=== PATIENT | male | born 1955 | race Two or more races ===

== ENCOUNTER → 2024-08-03 | Emergency (ER) | payer OTHER ==
[~2024-08-03] VITALS: Ht 160 cm; Wt 68.0 kg
[~2024-08-03] MED LIST: ETODOLAC500 M1 PO; FENOFIBRATE160 MG PO; KETOROLAC TROMETHAMINE 60 MG VIAL IM ONE; KETOROLAC TROMETHAMINE 60 MG VIAL IM STA; MULTIVITAMINA PO; ORPHENADRINE CITRATE 30 MG/ML AMPUL IM STA; ORPHENADRINE CITRATE 30 MG/ML AMPUL ONE; VITAMINA C PO
== END | disposition home or self-care (01) ==
LOC: ER 11:12
DX: M62.830 Muscle spasm of back (principal); M54.16 Radiculopathy, lumbar region

== ENCOUNTER 2025-01-07 06:00 | Day surgery (SDC) | payer OTHER ==
[2025-01-01 10:11] LABS: BASO % 0.5 % (0.1-1.2); EOS # 0.22 (0.04-0.54); EOS % 3.8 % (0.7-7.0); LYMPH # 1.71 (1.18-3.74); LYMPH % 29.4 % (19.3-53.1); MEAN PLATELET VOLUME 10.40 fl (9.4-12.4); MONO # 0.52 (0.24-0.82); MONO % 8.9 % (4.7-12.5); NEUT # 3.33 (1.56-6.13); NEUT % 57.2 % (34.0-71.1); RED CELL DISTRIBUTION WIDTH 12.8 % (11.6-14.4)
[2025-01-01 10:29] LABS: COVID-19 AG NEGATIVE (NEGATIVE)
[2025-01-01 10:41] LABS: INR 1.05
[2025-01-01 10:54] VITALS: BP 137/87
[2025-01-01 11:01] LABS: URINE APPEARANCE Clear; URINE BILIRRUBIN Negative (NEGATIVE); URINE BLOOD Negative; URINE COLOR Yellow; URINE GLUCOSE Negative (NEGATIVE); URINE KETONE Negative (NEGATIVE); URINE LEUKOCYTE Small; URINE NITRATE Negative; URINE PROTEIN Negative (NEGATIVE); URINE UROBILINOGEN 0.2 E.U./dl
[2025-01-01 11:06] LABS: URINE BACTERIA 9.5 uL (0.0-1933); URINE WBC 8.5 uL (0.0-23.2)
[2025-01-01 11:20] LABS: ALT/SGPT 67.0 U/L (12-78); AST/SGOT 40.0 U/L (15-37); BILIRUBIN TOTAL 0.8 mg/dL (0.3-1.2); BUN CREA RATIO 25.0 (7.0-25.0); CREATININE SERUM 0.61 mg/dL (0.70-1.30); GFR 131.45; GLOBULINA 2.9 G/DL (2.4-3.5); GLUCOSE FASTING 104.0 mg/dL (65-100); OSMOLALITY SERUM 290.0 MOSM/KG (275-295)
[2025-01-01 11:21] LABS: URINE CAST 0.00 uL (0.0-1.40); URINE EPITHELIAL CELLS 1.2 uL (0.0-38.8); URINE RBC 1.9 uL (0.0-20.8)
[~2025-01-07] VITALS: Ht 160 cm; Wt 68.0 kg
[~2025-01-07 06:00] MED LIST changes: +CATAFLAM; +COZAAR50 MG PO; +EZALLOR SPRINKLE5 MG PO; -KETOROLAC TROMETHAMINE 60 MG VIAL IM ONE; -KETOROLAC TROMETHAMINE 60 MG VIAL IM STA; +NEURONTIN300 MG; -ORPHENADRINE CITRATE 30 MG/ML AMPUL IM STA; -ORPHENADRINE CITRATE 30 MG/ML AMPUL ONE
[2025-01-07] MEDS ORDERED: CEFAZOLIN SODIUM 1,000 MG VIAL ONE (07:23)
[2025-01-07] MEDS ORDERED: POVIDONE-IODINE 118 ML BOTT TOP ONE ×2 (07:45→09:00)
[2025-01-07] MEDS ORDERED: POVIDONE-IODINE SCRUB 118 ML BOTT TOP ONE ×2 (07:45→09:00)
[2025-01-07] MEDS ORDERED: LIDOCAINE HCL 1%/EPINEPHRINE 10 ML VIAL IJ ONE (07:45)
[2025-01-07] MEDS ORDERED: EPINEPHRINE HCL/PF 1 MG/ML AMPUL ONE (07:45)
[2025-01-07] MEDS ORDERED: LIDOCAINE HCL 1% 20 ML VIAL IJ ONE (09:00)
[2025-01-07] MEDS ORDERED: CEFAZOLIN SODIUM 1,000 MG VIAL IV ONE (09:00)
[2025-01-07] MEDS ORDERED: BACITRACIN 28.35 GM OINT.TUBE TOP ONE (09:00)
[2025-01-07] MEDS ORDERED: SUGAMMADEX SODIUM 200 MG/2 ML VIAL IV ONE ×2 (09:30→09:50)
[2025-01-07] MEDS ORDERED: EPINEPHRINE HCL/PF 1 MG/ML AMPUL IR ONE (09:30)
[2025-01-07] MEDS ORDERED: CIPROFLOXACIN HCL 0.175 MG/DR DROPS OTIC ONE (09:45)
[2025-01-07] MEDS ORDERED: PROMETHAZINE HCL 25 MG/ML AMPUL IM PRN (10:30)
[2025-01-07] MEDS ORDERED: KETOROLAC TROMETHAMINE 60 MG VIAL IM PRN (10:30)
== END 2025-01-07 12:00 | disposition home or self-care (01) ==
LOC: CIR.AMB 06:00
PROVIDERS: ATTEND Otolaryngology Otology & Neurotology
DX: H80.82 Other otosclerosis, left ear (principal); H90.12 Conductive hearing loss, unilateral, left ear, with unrestricted hearing on the contralateral side